=== PATIENT | female | born 1990 | race Two or more races ===

== ENCOUNTER 2024-05-31 13:39 | Emergency (ER) | payer MEDICAID, OTHER ==
[~2024-05-31] VITALS: Ht 157.5 cm; Wt 65.5 kg
--- NOTE | 2024-05-31 15:48 | ED.PDOC ---
History of Present Illness HPI Comments 33 year old female presents to the ED with chief complaint of breast pain. Patient reports that she has been experiencing some right sided breast pain for the past 2 months with no obvious masses felt. Patient relays that she also has had some discharge and tenderness to her umbilicus region for the past 2 days. Patient states she has an appointment with her PCP in 2 days. Patient states that her grandmother has history of cancer. Patient denies any N/V/D, abdominal pain, dizziness, numbness, weakness, falls, or injuries. Chief Complaint: Breast pain Time Seen by MD: 15:44 Primary Care Provider: FERNANDEZ Bolton Notes: Nurses Notes, Medications, Allergies Allergies: Coded Allergies: NO KNOWN ALLERGIES (Unverified , 05/31/24) Information Source: Patient Mode of Arrival: Ambulatory Severity: Mild Timing: Days Duration: Since onset Prehospital treatment: None Past Medical History PAST MEDICAL HISTORY: Denies Surgical History (Other): Tummy Tuck, Breast augmentation OFFAL WORKER History: No Pertinent OFFAL WORKER History Family History Family History: Reviewed,noncontributory to illness Social History Smoker: Non-Smoker Alcohol: Denies ETOH Use Drugs: Denies Drug Use Lives In: Home Constitutional: denies: chills, diaphoresis, fatigue, fever, malaise, sweats, weakness, others EENTM: denies: blurred vision, double vision, ear bleeding, ear discharge, ear drainage, ear pain, ear ringing, eye pain, eye redness, hearing loss, mouth pain, mouth swelling, nasal discharge, nose bleeding, nose congestion, nose pain, photophobia, tearing, throat pain, throat swelling, voice changes, others Respiratory: denies: cough, hemoptysis, orthopnea, SOB at rest, shortness of breath, SOB with excertion, stridor, wheezing, others Cardiovascular: denies: chest pain, dizzy spells, diaphoresis, Dyspnea on exertion, edema, irregular heart beat, left arm pain, lightheadedness, palpitations, PND, syncope, others Gastrointestinal: reports: others (Umbilicus discharge and tenderness); denies: abdomen distended, abdominal pain, blood streaked bowels, constipated, diarrhea, dysphagia, difficulty swallowing, hematemesis, melena, nausea, poor appetite, poor fluid intake, rectal bleeding, rectal pain, vomiting Genitourinary: denies: abnormal vagina bleeding, burning, dyspareunia, dysuria, flank pain, frequency, hematuria, incontinence, pain, , vagina discharge, urgency, others Neurological: denies: dizziness, fainting, headache, left sided numbness, left sided weakness, numbness, paresthesia, pre-existing deficit, right sided numbness, right sided weakness, seizure, speech problems, tingling, tremors, weakness, others Musculoskeletal: reports: others (Rt breast pain); denies: back pain, gout, joint pain, joint swelling, muscle pain, muscle stiffness, neck pain Integumetry: denies: bruises, change in color, change in hair/nails, dryness, laceration, lesions, lumps, rash, wounds, others Allergic/Immunocompromised: denies: Difficulty Healing, Frequent Infections, Hives, Itching, others Hematologic/Lymphatic: denies: anemia, blood clots, easy bleeding, easy bruising, swollen glands, others Endocrine: denies: excessive hunger, excessive sweating, excessive thirst, excessive urination, flushing, intolerance to cold, intolerance to heat, unexplained weight gain, unexplained weight loss, others Psychiatric: denies: anxiety, bipolar disorder, depression, hopeless, panic disorder, schizophrenia, sleepless, suicidal, others All Other Systems: Reviewed and Negative Physical Exam General Appearance: No Apparent Distress, Normal HEENT: Normal ENT Inspection, Pharynx Normal, TMs Normal Neck: Full Range of Motion, Non-Tender, Normal, Normal Inspection Respiratory: Chest Non-Tender, Lungs Clear, No Accessory Muscle Use, No Respiratory Distress, Normal Breath Sounds Cardiovascular: No Edema, No JVD, No Murmur, No Gallop, Normal Peripheral Pulses, Regular Rate/Rhythm Breast Exam: Normal Gastrointestinal: No Organomegaly, Non Tender, No Pulsatile Mass, Normal Bowel Sounds, Soft, Other (Dry area around edge of umbilicus, no redness, no obvious discharge) Genitalia: Deferred Pelvic: Deferred Rectal: Deferred Extremities: No calf tenderness, Normal capillary refill, Normal inspection, Normal range of motion, Non-tender, No pedal edema Musculoskeletal : Apperance: Normal Neurologic: Alert, information technology assistant II-XII nml as Tested, No Motor Deficits, Normal Affect, Normal Mood, No Sensory Deficits Cerebellar Function: Normal Reflexes: Normal Skin: Dry, Normal Color, Warm Lymphatic: No Adenopathy Was a procedure done? Was a procedure done?: No Differential Dx Considerations may include: Right breast mass, abscess, cellulitis, X-Ray, Labs, Meds, VS Vital Signs Date Time Temp Pulse Resp B/P (MAP) Pulse Ox O2 Delivery O2 Flow Rate FiO2 05/31/24 14:05 98.8 73 16 118/81 (93) 97 X-Ray, Labs, Meds, VS Comment Imaging: X-rays and CT scans were reviewed and interpreted by this provider, imaging shows no fractures and no pathological disease. Pending radiology review. Laboratory: Labs reviewed and interpreted by this provider. No significant abnormalities noted. Patient has prior medical visits reviewed. Med reconciliation performed Vital signs reviewed Time of 1ST Reevaluation: 16:44 Reevaluation 1ST: Unchanged Patient Education/Counseling: Diagnosis, Treatment, Need For Follow Up (Follow up with the PCP as scheduled in two days.) Family Education/Counseling: No Family Present Departure 1 Departure Time of Disposition: 16:46 Impression: Primary Impression: Cellulitis, umbilical Additional Impression: Breast pain, right Disposition: 01 HOME / SELF CARE / HOMELESS Condition: Fair e-Prescriptions Cephalexin Monohydrate (Cephalexin) 500 Mg Cap 1 CAP PO TID for 7 Days, #21 CAP Prov: EMMY LICONA 05/31/24 Discharged With: Self Critical Care Note Critical Care Time?: No Stability Stability form required: No Heart Score Heart Score: Heart Score Response (Comments) Value History N/A 0 EKG N/A 0 Age N/A 0 Risk Factors N/A 0 Troponin N/A 0 Total 0 I personally scribed for EMMY LICONA ([email or web address]) on 05/31/24 at 15:48. Electronically submitted by Subhash Reynaga ([email or web address]). EMMY LICONA May 31, 2024 15:48
--- NOTE | 2024-05-31 16:21 | DVH ---
Procedure: CT CHEST WITHOUT CONTRAST Study Date and Requested Time: 05/31/2024 03:49 PM History: BREAST PAIN Comparison: None Dose: CTDI: 6.77 mGy DLP: 241.76 mGycm Technique: Multiplanar images obtained through the chest without contrast Findings: The thyroid gland is unremarkable. Heart size is within normal limits. No evidence of aortic aneurysm. The pulmonary trunk is normal in size. No significant mediastinal lymphadenopathy. No pneumothorax, pleural effusion or focal airspace conso lidation. Bibasilar linear atelectasis. Status post cholecystectomy. Mild wall thickening of proximal small bowel loops. Small to moderate am ount of fecal material within the partially visualized colon. Otherwise partial view of the upper ab domen is unremarkable. There is bilateral breast implant. No CT evidence of rupture. No significant soft tissue abnormalitie s. No evidence of acute bony abnormalities. Impression: No evidence of acute intrathoracic abnormalities. Bilateral breast implants are noted with no CT evidence of rupture. No significant soft tissues abnor malities. Mild wall thickening of partially visualized proximal small bowel loops which may be due to inadequat e distention/enteritis.
[2024-05-31] MEDS ORDERED: CEPH500C PO (16:49)
[2024-05-31 17:10] VITALS: BP 120/86; PULSE 68; RESP 20; TEMP 97.6; O2SAT 97
== END 2024-05-31 17:10 | disposition home or self-care (01) ==
LOC: ER 13:42
DX: L03.316 Cellulitis of umbilicus (principal); N64.4 Mastodynia; Z98.82 Breast implant status
CPT/HCPCS: 71250

== ENCOUNTER 2025-01-08 20:35 | Emergency (ER) | payer MEDICAID ==
[~2025-01-08] VITALS: Ht 157.5 cm; Wt 69.0 kg
[~2025-01-08 20:35] MED LIST: CEPH500C PO
[2025-01-08 20:38] VITALS: BP 123/81; PULSE 73; RESP 14; TEMP 98.7; O2SAT 97
--- NOTE | 2025-01-08 21:03 | ED.PDOC ---
History of Present Illness HPI Comments 34 y/o F presents with c/c of right, lower leg numbness for 2x weeks. Denial of any recent swelling or redness or further acute symptoms. No endorsed recent fall or injuries to leg. Only notable history of working out, daily, in addition to having associated headaches ON LEFT SIDE OF HEAD. Chief Complaint: Lower Extremity Time Seen by MD: 21:00 Primary Care Provider: FERNANDEZ Bolton Notes: Nurses Notes, Medications, Allergies Allergies: Coded Allergies: NO KNOWN ALLERGIES (Unverified , 05/31/24) Home Meds Active Scripts Cephalexin Monohydrate (Cephalexin) 500 Mg Cap, 1 CAP PO TID for 7 Days, #21 CAP Prov:EMMY LICONA 05/31/24 Information Source: Patient Mode of Arrival: Ambulatory Severity: Moderate Timing: Weeks Duration: Since onset Prehospital treatment: None Past Medical History PAST MEDICAL HISTORY: Denies Surgical History: Denies all surgeries SALES SERVICE REP History: No Pertinent SALES SERVICE REP History Family History Family History: Reviewed,noncontributory to illness Social History Smoker: Non-Smoker Alcohol: Denies ETOH Use Drugs: Denies Drug Use Lives In: Home All Other Systems: Reviewed and Negative (Comprehensive review of systems are negative unless stated in HPI) Physical Exam General Appearance: No Apparent Distress, Normal HEENT: Normal ENT Inspection, Pharynx Normal, TM Abnormal (R) Neck: Full Range of Motion, Non-Tender Respiratory: Lungs Clear, No Respiratory Distress, Normal Breath Sounds Cardiovascular: No Edema, No JVD, No Murmur, No Gallop, Normal Peripheral Pulses, Regular Rate/Rhythm Breast Exam: Deferred Gastrointestinal: No Organomegaly, Non Tender, No Pulsatile Mass, Normal Bowel Sounds, Soft Genitalia: Deferred Pelvic: Deferred Rectal: Deferred Extremities: No calf tenderness, Normal capillary refill, Normal range of motion, No pedal edema Musculoskeletal : Apperance: Normal Neurologic: Alert, dispatcher maintenance service II-XII nml as Tested, No Motor Deficits, Normal Affect, Normal Mood, No Sensory Deficits Cerebellar Function: Normal Reflexes: Normal Skin: Dry, Normal Color, Warm Lymphatic: No Adenopathy Was a procedure done? Was a procedure done?: No Differential Dx Considerations may include: fracture, dislocation, contusion, musculoskeletal pain, neurovascular injury, arthritis, among others X-Ray, Labs, Meds, VS Vital Signs Date Time Temp Pulse Resp B/P (MAP) Pulse Ox O2 Delivery O2 Flow Rate FiO2 01/08/25 20:38 98.7 73 14 123/81 97 98.7 Current Medications Medications (Trade) Dose Ordered Sig/Sea Route Start Time Stop Time Status Last Admin Ketorolac Tromethamine (Toradol Injection) 60 mg ONCE ONCE IM 01/08/25 22:45 01/08/25 22:46 DC 01/08/25 23:24 Dexamethasone Sodium Phosphate (Decadron Injection) 10 mg ONCE ONCE IM 01/08/25 22:45 01/08/25 22:46 DC 01/08/25 23:25 X-Ray, Labs, Meds, VS Comment LUMBAR SPINE CT FINDINGS: No evidence of definite acute fracture, spinal dislocation, or significant appearing acute subluxation is seen. Mild disc bulging throughout the lumbar spine without obvious high grade spinal stenosis, large focal disc herniation, or significant foraminal narrowing. Mild disc bulging without obvious spinal stenosis or nerve root impingement within the limits of a CT. CT HEAD/BRAIN FINDINGS: The ventricles and subarachnoid spaces are normal in size and configuration. There is no midline shift or mass effect. The horn white matter interfaces are maintained. The basal cisterns are patent. There is no evidence of acute intracranial hemorrhage or extra-axial fluid collection. The mastoid air cells and visualized paranasal sinuses are well-aerated. 1. No acute intracranial abnormality. RIGHT TIB-FIB X-RAY FINDINGS/IMPRESSION: : There is no evidence of acute fracture or dislocation. Soft tissues are unremarkable. Patient given Toradol 60 mg IM, Decadron 10 mg IM. Reports improvement does state still some numbness. Patient requesting discharge at this time. Patient advised to follow up with her PCP in 2-3 days if no improvement consider further imaging such as MRI if symptoms persist. ER return precautions given patient indicates understanding and agrees with discharge plan of care. Images Reviewed?: Images reviewed and evaluated by me Time of 1ST Reevaluation: 21:30 Reevaluation 1ST: Unchanged Time of 2ND Reevaluation: 22:34 Reevaluation 2ND: Improved Patient Education/Counseling: Diagnosis, Treatment, Need For Follow Up Family Education/Counseling: No Family Present SEPSIS Sepsis Screen Date sepsis recognized/suspect: Jan 08, 2025 Time Sepsis recognized/suspect: 2037 Recent Procedure: No On Antibiotic Therapy: No Respiratory Rate >20: No Heart Rate >90: No Temp<36 C (96.8 F) or >38.3 C: No SBP <90 or MAP <65 mmHG: No New Acute Mental Status Change: No Is the patient on CPAP, BIPAP,: No Physician Orders Head Without Contrast (01/08/25 21:39) R Tib Fib Xray (01/08/25 21:39) Ls Spine Wo Contrast (01/08/25 21:39) Vital Signs Date Time Temp Pulse Resp B/P (MAP) Pulse Ox O2 Delivery O2 Flow Rate FiO2 01/08/25 20:38 98.7 73 14 123/81 97 98.7 Medications Medications Dose Ordered Sig/Sea Route Start Time Stop Time Status Last Admin Dose Admin Dexamethasone Sodium Phosphate 10 mg ONCE ONCE IM 01/08/25 22:45 01/08/25 22:46 DC 01/08/25 23:25 Ketorolac Tromethamine 60 mg ONCE ONCE IM 01/08/25 22:45 01/08/25 22:46 DC 01/08/25 23:24 Departure 1 Departure Time of Disposition: 22:34 Impression: Primary Impression: Paresthesia of right lower extremity Disposition: 01 HOME / SELF CARE / HOMELESS Condition: Stable Discharged With: Self Critical Care Note Critical Care Time?: No Stability Stability form required: No Heart Score Heart Score: Heart Score Response (Comments) Value History N/A 0 EKG N/A 0 Age N/A 0 Risk Factors N/A 0 Troponin N/A 0 Total 0 I personally scribed for ER ([email or web address]) on 01/08/25 at 21:03. Electronically submitted by Franko Selby ([email or web address]). ER Jan 08, 2025 21:03 RADHA GRIFFIN TRUCK SWITCHER Jan 08, 2025 21:51
--- NOTE | 2025-01-08 22:12 | DVH ---
CLINICAL INDICATION: PAIN TECHNIQUE: XYXY R TIB FIB XRAY Comparison: None FINDINGS/IMPRESSION: : There is no evidence of acute fracture or dislocation. Soft tissues are unremarkable.
--- NOTE | 2025-01-08 22:28 | DVH ---
EXAM: CT LS SPINE WO CONTRAST HISTORY: LOW BACK PAIN RIGHT LEG NUMBNESS COMPARISON: None CTDIvol 17.13 mGy, DLP space giants 475.06 mGy*cm. TECHNIQUE: Multiple axial CT images of the spine were obtained using bone algorithm. Axial and harper l reformatting was done. Bone and soft tissue windows were reviewed. FINDINGS: No evidence of definite acute fracture, spinal dislocation, or significant appearing acute subluxatio n is seen. Mild disc bulging throughout the lumbar spine without obvious high grade spinal stenosis, large focal disc herniation, or significant foraminal narrowing. IMPRESSION: Mild disc bulging without obvious spinal stenosis or nerve root impingement within the limits of a CT .
--- NOTE | 2025-01-08 22:31 | DVH ---
CLINICAL HISTORY: LEFT SIDE HEAD PAIN RIGHT SIDE NUMBNESS TECHNIQUE: Helical imaging carried out from skull base to vertex without intravenous contrast. This e xam was performed according to our departmental dose optimization program. Up-to-date CT equipment an d radiation dose reduction techniques are utilized as appropriate. 50.84 CTDIVol: 50.84 mGy DLP: 1203.59 mGy-cm WID: COMPARISON: None FINDINGS: The ventricles and subarachnoid spaces are normal in size and configuration. There is no midline sheryl ft or mass effect. The horn white matter interfaces are maintained. The basal cisterns are patent. Th ere is no evidence of acute intracranial hemorrhage or extra-axial fluid collection. The mastoid air cells and visualized paranasal sinuses are well-aerated. IMPRESSION: 1. No acute intracranial abnormality.
[2025-01-08] MEDS: KETOROLAC TROMETH 60MG/2ML VIAL IM ONE (23:24)
== END 2025-01-08 22:34 | disposition home or self-care (01) ==
LOC: ER 20:35
DX: R20.2 Paresthesia of skin (principal); R20.0 Anesthesia of skin; R51.9 Headache, unspecified
CPT/HCPCS: 70450; 72131; 73590; 96372; 99285; J1100; J1885